=== PATIENT | male | born 1950 | race Caucasian/White ===

== ENCOUNTER → 2017-08-13 | Outpatient (CLI) | payer MEDICARE ==
--- NOTE | 2017-08-14 08:01 | MR ---
EXAMINATION TYPE: MR knee RT wo con DATE OF EXAM: 08/13/2017 COMPARISON: Outside radiographs 07/23/2017 HISTORY: 67-year-old male Pain in right knee TECHNIQUE: Multiplanar, multisequence imaging of the right knee is performed without IV contrast. FINDINGS: ACL, PCL, MCL, and LCL complex appear intact. Medial meniscus is intact with some mild degenerative signal in the posterior horn. Overall maintaine d medial compartment articular cartilage volume. There is a complex irregular tear involving the body of the medial meniscus with tear extending into the anterior horn. Tiny 3 mm Meniscal cyst along the body. Very minimal superficial cartilage irregularity along the mid weightbea ring aspect of the tibial articular surface within the lateral compartment. Mild superficial cartilage irregularity along the lateral patellar facet. Slight lateral patellar tra nslation is noted TT-TG distance is 2.0 cm which is borderline. Small ganglion cyst measuring 1.3 cm at the origin of the medial head gastrocnemius. Extensor mechanism is intact. Mild anterior subcutaneous soft tissue swelling is nonspecific. Small knee joint effusion without Hightower's cyst. Normal popliteal artery anatomy and muscle bulk. No suspicious bone marrow replacement. IMPRESSION: 1. Complex tear involving the body of the lateral meniscus with tear extending into the anterior horn . Minimal superficial cartilage irregularity along the mid weightbearing aspect of the lateral compar tment. 2. Mild fraying of articular cartilage along the lateral patellar facet of the patellofemoral compart ment. The TT-TG distance is borderline increased at 2.0 cm.
== END | disposition home or self-care (01) ==
LOC: RADMRIMAIN 06:05
PROVIDERS: ATTEND Orthopaedic Surgery
DX: S83.271A Complex tear of lateral meniscus, current injury, right knee, initial encounter (principal); M94.8X6 Other specified disorders of cartilage, lower leg

== ENCOUNTER → 2017-08-23 | Outpatient (CLI) | payer MEDICARE ==
[2017-08-23 10:54] LABS: Basophils % (A) 1 %; Eosinophils # (A) 0.2 k/uL (0-0.7); Eosinophils % (A) 4 %; HCT 44.5 % (39.0-53.0); HGB 15.1 gm/dL (13.0-17.5); Lymphocytes % (A) 21 %; MCH 30.2 pg (25.0-35.0); MCHC 33.9 g/dL (31.0-37.0); MCV 89.1 fL (80.0-100.0); Mean Platelet Volume 6.7; Monocytes # (A) 0.5 k/uL (0-1.0); Monocytes % (A) 10 %; Neutrophils # (A) 2.9 k/uL (1.3-7.7); Neutrophils % (A) 61 %; Platelet Count 231 k/uL (150-450); RBC 4.99 m/uL (4.30-5.90); RDW 12.7 % (11.5-15.5); WBC 4.7 k/uL (3.8-10.6)
== END | disposition home or self-care (01) ==
LOC: LABPAT 09:51
PROVIDERS: ATTEND Orthopaedic Surgery
DX: Z01.812 Encounter for preprocedural laboratory examination (principal); Z01.818 Encounter for other preprocedural examination; M23.91 Unspecified internal derangement of right knee; I10 Essential (primary) hypertension
CPT/HCPCS: 36415; 80051; 85025; 93005

== ENCOUNTER 2017-08-31 07:24 | Day surgery (SDC) | payer MEDICARE ==
[2017-08-27 14:33] VITALS: BMI 27.5
--- NOTE | 2017-08-30 09:06 | HP ---
HISTORY AND PHYSICAL CHIEF COMPLAINT: Right knee pain. HISTORY OF PRESENT ILLNESS: The patient is a 67-year-old retired gentleman who presents with progressive right knee pain over the past year. He notes lateral pain along with giving way intermittently. He also feels occasional locking. He has been taking ibuprofen for this. He notes the pain limits his normal activities. PAST MEDICAL HISTORY: Significant for hypercholesterolemia and hypertension. CURRENT MEDICATIONS: 1. Amlodipine. 2. Losartan. 3. Atorvastatin. PAST SURGICAL HISTORY: Negative. He denies drug allergies. FAMILY HISTORY: Significant for cancer, heart disease, and renal disease. SOCIAL HISTORY: Negative for current tobacco or alcohol use. REVIEW OF SYSTEMS: A 16 point review of systems otherwise reviewed and is noncontributory. PHYSICAL EXAMINATION: The patient is approximately 5 foot 10, 190 pounds of mesomorphic habitus. HEENT exam is nonfocal. Neck is supple. He has painless passive motion of the right hip. Straight leg raise is negative. Active motion right knee -6 to 130 degrees of flexion. He has a trace effusion. He is tender about the lateral joint line. Collaterals are stable, Desire is negative, Jaylon's elicits lateral pain. His distal neurovascular appears intact in the right lower extremity. MRI report right knee from 08/13/2017 shows a lateral meniscal tear along with mild degenerative changes. There also appears to be irregularity involving the anterior horn of the medial meniscus. IMPRESSION: Right knee internal derangement with symptomatic lateral meniscal tear. RECOMMENDATIONS: I talked to the patient at length regarding his condition and treatment options. At this point, he is having significant pain and mechanical symptoms that limit him. He opts to proceed with surgery. We will plan to proceed with arthroscopic evaluation with possible partial lateral meniscectomy. Risks and benefits were discussed at length in layman's terms. We will likely perform that as an outpatient procedure. MMODL / IJN: [id number] /
[~2017-08-31 07:24] MED LIST: DEXAMETHASONE SOD PHOSPHATE 10 MG/ML 1 ML VIAL IV ONE; HYDROmorphone 0.5 MG/0.5 ML SYRINGE IVP PRN; LACTATED RINGERS 1,000 ML IV SCH; ONDANSETRON 4 MG/2 ML VIAL IVP ONE; ceFAZolin IN SWFI 2 GM/20 ML SYRINGE IVP ONE
[2017-08-31] MEDS ORDERED: LIDOCAINE 1% 20 ML VIAL (10MG/ML) FOR IV START INTRADERMA ONE (08:33)
[2017-08-31 08:35] LABS: Glucose,Whole Blood 90 mg/dL (75-99)
[2017-08-31] MEDS ORDERED: EPINEPHrine (PF) 1 ML in SODIUM CHLORIDE 0.9% IRRIGATIO 3,000 ML IRRIGATION ONE ×4 (09:14)
[2017-08-31] MEDS ORDERED: LIDOCAINE 1% INJ 10MG/ML (20 ML MDV) ONE (09:14)
[2017-08-31] MEDS ORDERED: fentaNYL (PF) 50 MCG/ML 2 ML AMP ONE (09:14)
[2017-08-31] MEDS ORDERED: SUCCINYLCHOLINE CHLORIDE 100 MG/5 ML SYR IV ONE (09:14)
[2017-08-31] MEDS ORDERED: MIDAZOLAM 2 MG/2 ML VIAL ONE (09:14)
[2017-08-31] MEDS ORDERED: PROPOFOL 10 MG/ML 20 ML VIAL IV ONE (09:14)
--- NOTE | 2017-08-31 10:10 | P.OP ---
Date of Procedure: 08/31/17 Preoperative Diagnosis: Right knee internal derangement Postoperative Diagnosis: Right knee middle/anterior one third lateral meniscal tear, grade 2 chondral injury distal lateral portion lateral femoral condyle, grade 2 chondral injury lateral patella facet Procedure(s) Performed: Right knee arthroscopic partial lateral meniscectomy/lateral femoral chondrectomy/patellar chondroplasty Anesthesia: IVETTE Surgeon: Charli Calderon Estimated Blood Loss (ml): 10 Pathology: none sent Condition: stable Disposition: PACU Indications for Procedure: The patient's a 67-year-old male who presents with progressive right knee pain and mechanical symptoms despite conservative measures. A discussion of the risks and benefits of operative intervention versus continued conservative measures was made with the patient. He opted to proceed with surgery. Operative risks to include infection, neurovascular injury, development of blood clots, possible incomplete resolution of symptoms, possible worsening symptoms and need for subsequent procedures was discussed. Informed consent was obtained. Operative Findings: As below Description of Procedure: The patient was brought to the operating room, and after induction of general anesthesia examined the right knee. Collaterals were stable, Desire was negative, and posterior drawer was negative. The right lower extremity was prepped and draped in normal fashion. A superior lateral portal was made through a 3 mm skin incision superior and lateral to the patella. This was used for outflow. A lateral portal was made through a 5 mm vertical skin incision lateral to the patella tendon above the joint line. Diagnostic arthroscopy was performed. A medial portal was made through a similar incision medial to the patellar tendon above the joint line. On inspection of the medial compartment, the medial meniscus was stable and intact. Reactive synovitis involving anterior medial compartments was debrided with a motorized shaver. On inspection the notch, the anterior cruciate ligament appeared to be intact. On inspection of the lateral compartment, a macerated tear involving the middle anterior one third of the lateral meniscus in the white-red junction was noted. This was not amenable to repair. This was debrided back to stable base with straight baskets and a motorized shaver. The edges were contoured. The posterior horn appeared to be intact. A corresponding grade 2 chondral injury was noted involving the distal lateral portion of the lateral femoral condyle. There was a small loose chondral flap that was debrided back to a stable base with a motorized shaver. On inspection of the patellofemoral articulation, there is chondral fibrillation in addition to a grade 2 chondral injury involving the lateral patella facet. There was a loose chondral fragment debrided back to stable base with a motorized shaver. The gutters were clear debris. The knee was then thoroughly irrigated. The portals were closed with Steri-Strips. A sterile dressing was applied in addition to a compression stocking. The patient was awoken from general anesthesia and transferred to recovery room in good condition. Blood loss was estimated at 10 mL. No complications were incurred.
[2017-08-31 10:16] VITALS: TEMP 97.4
[2017-08-31] MEDS ORDERED: LACTATED RINGERS 1,000 ML IV ONE (10:38)
[2017-08-31 11:23] LABS: Glucose,Whole Blood 131 mg/dL (75-99)
[2017-08-31 12:06] VITALS: PULSE 71; RESP 18
[2017-08-31] MEDS ORDERED: IBUPROFEN 200 MG TAB PO ONE (12:37)
[2017-08-31 12:40] VITALS: BP 125/85
== END 2017-08-31 12:57 | disposition home or self-care (01) ==
LOC: OR 07:24
PROVIDERS: ATTEND Orthopaedic Surgery
DX: S83.281A Other tear of lateral meniscus, current injury, right knee, initial encounter (principal); M65.861 Other synovitis and tenosynovitis, right lower leg; M94.261 Chondromalacia, right knee; X58.XXXA Exposure to other specified factors, initial encounter; I10 Essential (primary) hypertension; E78.00 Pure hypercholesterolemia, unspecified; E78.5 Hyperlipidemia, unspecified; N40.0 Benign prostatic hyperplasia without lower urinary tract symptoms; Z79.899 Other long term (current) drug therapy
CPT/HCPCS: 29881; J2250; J1100; J2405; J0171; J2001; J3010; J0330; J2704; J0690